=== PATIENT | male | born 1970 | race Caucasian/White ===

== ENCOUNTER → 2020-11-15 10:52 | Outpatient (BNVA) | payer BC, SELFPAY | PROVIDERS: Family Provider Nurse Practitioner; PCP Nurse Practitioner Family; Visit Provider Nurse Practitioner Family | DX: J06.9 Acute upper respiratory infection, unspecified (principal); Z20.822 Contact with and (suspected) exposure to COVID-19 | CPT/HCPCS: 87635 ==

== ENCOUNTER 2020-11-23 22:20 | Emergency (ER) | payer BC, SELFPAY ==
[2020-11-23 22:34] VITALS: BP 149/87; PULSE 128; RESP 17; TEMP 38.4; O2SAT 91; BMI 31.4
--- NOTE | 2020-11-23 22:45 | XRR_ITS ---
PROCEDURE INFORMATION: Exam: XR Chest Exam date and time: 11/23/2020 10:45 PM Age: 50 years old Clinical indication: Cough and shortness of breath; Patient HX: Cough and SOB. Covid + TECHNIQUE: Imaging protocol: XR of the chest. Views: 1 view. COMPARISON: CR Chest 1 [place] [id number] 10/04/2015 5:24 PM FINDINGS: Lungs: Interval appearance of extensive patchy hazy densities in both lungs. No obvious atelectasis in the lower lungs. Interval shallower lung volumes. Pleural spaces: Still no pneumothorax or apparent pleural fluid. Heart/Mediastinum: Still no cardiomegaly. Vasculature: Aortic elongation again evident. Bones/joints: No acute bony disease. XR/XR chest 1V portable [id number] IMPRESSION: Interval extensive bilateral lung disease most suggestive of pneumonia. Other findings detailed above.
[2020-11-24] VITALS (8 sets, daily range): BP systolic 106–131; BP diastolic 71–95; PULSE 88–120; RESP 20–24; TEMP 37.3–37.4; O2SAT 87–94
--- NOTE | 2020-11-24 02:03 | ED_ITS ---
HPI - SOB/Dyspnea General: Chief Complaint: Shortness of Breath/Dyspnea Stated Complaint: Low Oxygen due to Covid Time Seen by Provider: 11/24/20 01:52 Source: patient Mode of arrival: ambulatory Limitations: no limitations History of Present Illness: HPI Narrative: 50-year-old male who states he has been having Covid symptoms of the last 10 days. He stated he is tested positive for Covid 1 week ago. He states over last 2 days has had increasing fever and body aches. He states he had a productive cough and shortness of breath. He states that his pulse ox at home was in the upper 80s. It is 91% here on room air. He denies any improving or worsening factors. He has no history of any respiratory issues. Associated symptoms: Reports fever(s); Deny abdominal pain, chest pain, nausea or vomiting Review of Systems Const: Reports: fever(s), chills and body aches Eyes: Denies: blurry vision or eye discomfort ENMT: Denies: throat pain or dental pain Card: Denies: chest pain Resp: Reports: dyspnea and productive cough GI: Denies: abdominal pain, nausea, vomiting or diarrhea : Denies: dysuria Musc: Denies: neck pain or back pain Skin/Breast: Denies: rash Neuro: Denies: headache(s) Psych: Denies: depression Ju[place]arlos/Lymph: Denies: easy bruising All/Imm: Denies: urticaria PFSH ED PFSH: Family History (Updated 11/15/20 @ 09:24 by Amelia Simpson LPN) Other Diabetes Physical Exam Const: COMMON NORMALS: no acute distress, patient oriented x3 and healthy appearing HENMT: COMMON NORMALS: normocephalic and atraumatic HEAD & SCALP: normocephalic and atraumatic Eye: COMMON NORMALS: Equal, round and reactive pupils present and EOMs intact bilaterally PUPIL: Yes Equal, round and reactive pupils present Neck/C-Spine: COMMON NORMALS: full ROM and supple Chest: COMMONS NORMALS: normal inspection of the chest and normal palpation of entire chest wall Resp: COMMON NORMALS: normal respiratory effort, No retractions, No use of accessory muscles and clear to auscultation bilaterally AUSCULTATION: clear to auscultation bilaterally Cardio: COMMON NORMALS: regular rate, regular rhythm and No murmurs present (Cardio) RATE: regular rate RHYTHM: regular rhythm GI: COMMON NORMALS: Normal to inspection, nondistended, normoactive bowel sounds present, Soft to palpation, non-tender and no masses PALPATION: Yes Soft to palpation Extremity: COMMON NORMALS: normal to inspection and full ROM Neuro: COMMON NORMALS: patient oriented x3, moves all extremities and no focal motor deficits Psych: COMMON NORMALS: mental status grossly normal, Normal thought process present and cooperative THOUGHT PROCESS: Normal thought process present Skin: COMMON NORMALS: no rashes or lesions noted and no wounds GENERAL SKIN EXAM: no rashes or lesions noted Course Vital Signs: Vital signs: Vital Signs Temperature 99.1 F 11/24/20 02:45 Pulse Rate 88 11/24/20 04:41 Respiratory Rate 20 H 11/24/20 04:41 Blood Pressure 106/71 11/24/20 04:41 Pulse Oximetry 93 11/24/20 04:41 MDM - SOB/Dyspnea MDM Narrative: Medical decision making narrative: Patient presents with COVID- 19 pneumonia. He states he feels much improved here after his breathing treatment steroids and oxygen. A long discussion with him and and I offered him admission. He states he feels improved and would like to go home on oxygen. OT eval he qualified for [address] him on 4 L at home. I informed him that if he does worsen at all or get any shortness of breath at all he is to return immediately. He understands agrees this plan Lab Data: Labs: Lab Results 11/24/20 11/24/20 11/24/20 Range/Units 02:20 02:20 02:20 WBC 15.4 H (4.0-10.0) 10^3/ uL RBC 5.29 (4.1-5.3) 10^6/u L Hgb 15.8 (11.7-16.6) g/dL Hct 46.4 (42.0-52.0) % MCV 87.7 (80-94) fL MCH 29.9 (28.0-34.0) pg MCHC 34.1 (30.0-36.0) g/dL RDW 13.2 (12.1-15.1) % Plt Count 289 (130-400) 10^3/c mm MPV 10.7 H (7.4-10.4) fL Lymph % (Auto) Not Reportable [place] % (Auto) Not Reportable Lymph # (Auto) Not Reportable [place] # (Auto) Not Reportable Total Counted 100 (0-100) Atypical Lymphs % 2.0 (0-5) % Absolute Neutrophi ls 11.2 H (1.4-6.5) 10^3/c mm Segmented Neutroph ils 70 % Abs Segm Neuts (Ma n) 10.8 H (1.6-7.1) 10/cmm Band Neutrophils 3.0 % Abs Band Neuts (Ma n) 0.5 (0.0-1.2) 10^3/c mm Absolute Lymphocyt es 2.5 (1.2-3.4) 10^3/c mm Lymphocytes (Manua l) 14 % Monocytes (Manual) 9.0 % Absolute Monocytes 1.4 H (0.1-0.6) 10^3/c mm Eosinophils (Manua l) 0 % Absolute Eosinophi ls 0.0 (0.0-0.7) 10^3/c mm Basophils (Manual) 0.0 % Absolute Basophils 0.0 (0.0-0.2) 10^3/c mm Metamyelocytes 2.0 % Platelet Estimate Normal (Normal) Fibrinogen (174-498) mg/dL D-Dimer (0-0.59) ug/mIFE U Sodium 136 (136-145) mmol/L Potassium 3.8 (3.5-5.1) mmol/L Chloride 103 (98-107) mmol/L Carbon Dioxide 21 L (22-29) mmol/L Anion Gap 15.8 (5-19) BUN 20 (6-20) mg/dL Creatinine 0.6 L (0.7-1.2) mg/dL GFR Calculation 142.0 H (90-130) mL/min Glucose 113 (65-115) mg/dL Calculated Osmolal ity 285 (285-295) mOsm/k g Lactic Acid (0.5-2.2) mmol/L Calcium 7.5 L (8.5-10.5) mg/dL Ferritin 1111 H (30-400) ng/mL Total Bilirubin 0.2 (0.15-1.2) mg/dL AST 28 (0-40) U/L ALT 48 H (0-41) U/L Alkaline Phosphata se 77 (40-130) IU/L Creatine Kinase 53 (39-308) U/L Troponin T Gen 5 n g/L (0-15) ng/L C-Reactive Protein 108.2 H (0.0-4.9) mg/L NT-Pro-B Natriuret Pep 236 H (0-125) pg/mL Total Protein 5.4 L (6.6-8.7) g/dL Albumin 3.1 L (3.5-5.2) g/dL Globulin 2.3 (1.3-4.6) g/dL Procalcitonin 0.22 (0-0.5) ng/mL 11/24/20 11/24/20 11/24/20 Range/Units 02:20 02:20 02:58 WBC (4.0-10.0) 10^3/ uL RBC (4.1-5.3) 10^6/u L Hgb (11.7-16.6) g/dL Hct (42.0-52.0) % MCV (80-94) fL MCH (28.0-34.0) pg MCHC (30.0-36.0) g/dL RDW (12.1-15.1) % Plt Count (130-400) 10^3/c mm MPV (7.4-10.4) fL Lymph % (Auto) [place] % (Auto) Lymph # (Auto) [place] # (Auto) Total Counted (0-100) Atypical Lymphs % (0-5) % Absolute Neutrophi ls (1.4-6.5) 10^3/c mm Segmented Neutroph ils % Abs Segm Neuts (Ma n) (1.6-7.1) 10/cmm Band Neutrophils % Abs Band Neuts (Ma n) (0.0-1.2) 10^3/c mm Absolute Lymphocyt es (1.2-3.4) 10^3/c mm Lymphocytes (Manua l) % Monocytes (Manual) % Absolute Monocytes (0.1-0.6) 10^3/c mm Eosinophils (Manua l) % Absolute Eosinophi ls (0.0-0.7) 10^3/c mm Basophils (Manual) % Absolute Basophils (0.0-0.2) 10^3/c mm Metamyelocytes % Platelet Estimate (Normal) Fibrinogen 727 H (174-498) mg/dL D-Dimer 0.67 H (0-0.59) ug/mIFE U Sodium (136-145) mmol/L Potassium (3.5-5.1) mmol/L Chloride (98-107) mmol/L Carbon Dioxide (22-29) mmol/L Anion Gap (5-19) BUN (6-20) mg/dL Creatinine (0.7-1.2) mg/dL GFR Calculation (90-130) mL/min Glucose (65-115) mg/dL Calculated Osmolal ity (285-295) mOsm/k g Lactic Acid 1.5 (0.5-2.2) mmol/L Calcium (8.5-10.5) mg/dL Ferritin (30-400) ng/mL Total Bilirubin (0.15-1.2) mg/dL AST (0-40) U/L ALT (0-41) U/L Alkaline Phosphata se (40-130) IU/L Creatine Kinase (39-308) U/L Troponin T Gen 5 n g/L 12 (0-15) ng/L C-Reactive Protein (0.0-4.9) mg/L NT-Pro-B Natriuret Pep (0-125) pg/mL Total Protein (6.6-8.7) g/dL Albumin (3.5-5.2) g/dL Globulin (1.3-4.6) g/dL Procalcitonin (0-0.5) ng/mL Imaging Data^: CXR: Attestation: I personally reviewed and interpreted this imaging study as follows: My impression: Bilateral infiltrates consistent with COVID-19 Discharge Plan Discharge Patient Disposition: Home Clinical Impression: COVID-19 Condition: Stable Prescriptions: No Action azithromycin [Zithromax Z-Robbie] 250 mg tablet See Rx Instructions PO .COMPLEX Qty: 6 RF: 0 dexamethasone 6 mg tablet 6 mg PO DAILY Qty: 7 RF: 0 Discharge Orders: Discharge ED (Routine); Ordered 11/24/20 Ordered By: Holli Yoo Other Ambulatory Orders: DME: Oxygen (Order) Location: None Selected Ordered By: Holli Yoo DME: Oxygen (Order) Location: None Selected Ordered By: Holli Yoo Discharge Diet: Advance as tolerated Discharge Activity: Resume usual activity Patient Instructions: Viral Syndrome (ED) Coding Level of Care Code ED Cotton Ball Machine Tender for Km Fwmaximilian Exam Comprehensive
[2020-11-24] MEDS: acetaminophen 500 mg Tablet 1000 MG PO (02:07)
[2020-11-24] MEDS: dexamethasone 4 mg/mL INJ 10 MG IVP (02:10)
[2020-11-24] MEDS: sodium chloride 0.9% 1,000 ML 999 ML IV (02:10)
[2020-11-24] MEDS: albuterol 8 gm MDI 2 PUFF INHALATION (02:36)
[2020-11-24 02:38] LABS: Hematocrit 46.4 % (42.0-52.0); Hemoglobin 15.8 g/dL (11.7-16.6); Mean Corpuscular HGB Conc 34.1 g/dL (30.0-36.0); Mean Corpuscular Hemoglobin 29.9 pg (28.0-34.0); Mean Corpuscular Volume 87.7 fL (80-94); Mean Platelet Volume 10.7 fL (7.4-10.4); Platelet Count 289 10^3/cmm (130-400); Red Blood Count 5.29 10^6/uL (4.1-5.3); Red Cell Distribution Width 13.2 % (12.1-15.1); White Blood Count 15.4 10^3/uL (4.0-10.0)
[2020-11-24 03:06] LABS: Troponin T (5th) Once 12 ng/L (0-15)
[2020-11-24 03:11] LABS: Lactic Sepsis W/Reflex 1.5 mmol/L (0.5-2.2)
[2020-11-24 03:12] LABS: Alanine Aminotransferase 48 U/L (0-41); Albumin Level 3.1 g/dL (3.5-5.2); Alkaline Phosphatase 77 IU/L (40-130); Anion Gap 15.8 (5-19); Aspartate Amino Transferase 28 U/L (0-40); Blood Urea Nitrogen 20 mg/dL (6-20); C Reactive Protein 108.2 mg/L (0.0-4.9); Calcium 7.5 mg/dL (8.5-10.5); Carbon Dioxide 21 mmol/L (22-29); Chloride 103 mmol/L (98-107); Creatine Phosphokinase 53 U/L (39-308); Globulin 2.3 g/dL (1.3-4.6); Glucose 113 mg/dL (65-115); Osmolality Calculated 285 mOsm/kg (285-295); Potassium 3.8 mmol/L (3.5-5.1); Sodium 136 mmol/L (136-145); Total Bilirubin 0.2 mg/dL (0.15-1.2); Total Protein 5.4 g/dL (6.6-8.7)
[2020-11-24 03:21] LABS: NT Pro B Type Natriuretic Pept 236 pg/mL (0-125); Procalcitonin 0.22 ng/mL (0-0.5)
[2020-11-24 03:25] LABS: Fibrinogen 727 mg/dL (174-498)
[2020-11-24 03:26] LABS: Ferritin 1111 ng/mL (30-400)
[2020-11-24 03:30] LABS: D Dimer 0.67 ug/mIFEU (0-0.59)
[2020-11-24 03:32] LABS: Absolute Neutrophil 11.2 10^3/cmm (1.4-6.5); Absolute Segmented Neutrophil 10.8 10/cmm (1.6-7.1); Band Neutrophils Absolute 0.5 10^3/cmm (0.0-1.2); Eosinophils 0 %; Lymphocytes 14 %; Lymphocytes Absolute 2.5 10^3/cmm (1.2-3.4); Monocytes Absolute 1.4 10^3/cmm (0.1-0.6); Platelet Estimate Normal (Normal); Segmented Neutrophils 70 %; Slide Review Slide Review Perform; Total Cells Counted 100 (0-100)
== END 2020-11-24 05:45 | disposition home or self-care (01) ==
PROVIDERS: Nurse Practitioner Family; Emergency Provider Emergency Medicine
DX: U07.1 COVID-19 (principal)
CPT/HCPCS: 71045; 80053; 82550; 82728; 83605; 83880; 84145; 84484; 85007; 85025; 85378; 85384; 86140; 94640; 96361; 96374; 99284; J1100; J3535; J7030

== ENCOUNTER 2020-11-25 11:24 | Inpatient (IN) | payer BC, SELFPAY ==
[2020-11-25] VITALS (56 sets, daily range): BP systolic 104–145; BP diastolic 67–93; PULSE 45–113; RESP 18–32; TEMP 36.4–37.5; O2SAT 81–100; BMI 31.4; BMI 30.6
--- NOTE | 2020-11-25 11:39 | XR_ITS ---
WS: [id number] Portable AP upright chest, 11/25/2020 Clinical Data: dyspnea Comparison: Portable chest, 11/24/2020 Findings: The bilateral pulmonary opacities have not changed. The heart size is at the upper limits o f normal. No pneumothorax is seen. There are monitor leads on the chest wall. XR/XR chest 1V portable [id number] Impression: No change in bilateral pulmonary opacities.
--- NOTE | 2020-11-25 11:42 | CT_ITS ---
WS: [id number] CT CHEST ANGIOGRAPHY WITH REFORMATS HISTORY: covid TECHNIQUE: Contiguous axial images are obtained through the chest during arterial injection of intrav enous contrast. Images are reconstructed to evaluate the pulmonary arteries. MIP imaging also reviewe d. All CT scans at [facility] use at least one of these dose optimization techniques: aut omated exposure control; mA and/or kV adjustment per patient size (includes targeted exams where dose is matched to clinical indication); or iterative reconstruction. CONTRAST: Omnipaque 350; 95 mL IV. DLP: 995.48 mGy.cm COMPARISON: None available. Good opacification of the pulmonary arteries. No pulmonary embolism centrally. Segmental and subsegme ntal branches of the pulmonary arteries are poorly visualized due to extensive airspace disease bilat erally. No RIGHT heart strain. Normal size aorta. Pulmonary artery is actually slightly enlarged. Mil d enlargement of the LEFT heart. There is extensive groundglass attenuation and consolidations noted bilaterally throughout all lobes. Consistent with a history of Covid 19. Reactive lymphadenopathy with the largest lymph node at the R IGHT hilum measuring 17 mm. Upper abdomen is negative. CT/CT angio chest PE protcl [id number] IMPRESSION: 1. No central pulmonary embolism. 2. Extensive multilobar consolidations with a few groundglass areas from pneum onitis. Consistent with Covid 19 diagnosis. 3. Reactive mediastinal adenopathy. 4. Mild pulmonary hypertension.
[2020-11-25 12:05] LABS: ABG PH Result 7.48 (7.35-7.45); Alveolar-Arterial Oxygen Gradi 79.2 mmHg (5-10); Arterial Blood Gas Hematocrit 48.4 % (42-52); Base Excess ABG 0.3 mmol/L (-2.0-2.0); Blood Gas Allen Test Pos; Blood Gas Sample Site Radial, right; Blood Gas Sample Type Arterial; Carboxyhemoglobin 0.6 %THgb (0.4-20.1); HCO3 ABG 22.9 mmol/L (22-26); HGB O2 Sat 92.5 % (95-100); Ionized Calcium Level - ABG 1.1 mmol/L (1.1-1.4); Methemoglobin 0.9 % (0.4-1.5); Oxygen Device NC; Oxygen Saturation ABG 93.9; PO2 ABG 62.9 mmHg (80.0-100.0); Potassium Level - ABG 3.7 mmol/L (3.5-5.0); Total Hemoglobin 15.8 g/dL (14-18)
[2020-11-25 12:05] LABS: Basophils # 0.1 10^3/uL (0.0-0.1); Basophils % 0.3 %; Eosinophils % 0.1 %; Hematocrit 46.2 % (42.0-52.0); Hemoglobin 15.2 g/dL (11.7-16.6); Lymphocytes # 1.1 10^3/uL (0.8-4.8); Lymphocytes % 4.7 %; Mean Corpuscular HGB Conc 32.9 g/dL (30.0-36.0); Mean Corpuscular Hemoglobin 29.7 pg (28.0-34.0); Mean Corpuscular Volume 90.2 fL (80-94); Mean Platelet Volume 11.1 fL (7.4-10.4); Monocytes # 1.8 10^3/uL (0.2-0.9); Neutrophils % 84.2 %; Nucleated Red Blood Cells % 0 %; Platelet Count 281 10^3/cmm (130-400); Red Blood Count 5.12 10^6/uL (4.1-5.3); Red Cell Distribution Width 13.5 % (12.1-15.1); White Blood Count 22.9 10^3/uL (4.0-10.0)
[2020-11-25] MEDS: iohexol 350 mg/mL 100 mL Btl IV (12:38)
--- NOTE | 2020-11-25 12:39 | ED_ITS ---
HPI - COVID General: Chief Complaint: COVID symptoms Stated Complaint: COVID +/ DIFFICULTY BREATHING Time Seen by Provider: 11/25/20 11:26 Triage information: Has fever, cough or shortness of breath . Exposure to COVID + person last 14 days History of Present Illness: HPI Narrative: 50-year-old male presents emergency room complaining of severe shortness of breath he is profoundly hypoxic keeping in the upper 90s at 15 L/min by a nonrebreather. He tested positive for Covid on November 15. He had symptoms starting the day prior he had been on home O2 at 4 L by nasal cannula been progressively worsening to the point where he has coughing fits desaturated and could not breathe this morning called EMS. MD complaint: known COVID positive Prior covid testing: yes, results known Prior testing date: 11/15/20 COVID 19 common symptoms: positive fever(s), chills, cough, non-productive cou gh, dyspnea, fatigue, body aches, headache(s), nasal congestion and nausea COVID 19 other sytmptoms: positive requiring oxygen; negative chest pain Onset (ago): day(s) Severity: severe Treatment prior to arrival: none COVID Results: SARS-CoV-2 RNA (RT-PCR) Detected (NOT DETECTED) A 11/15/20 10:52 11/15/20 Review of Systems Const: Reports: fever(s), chills, body aches and fatigue ENMT: Reports: nasal congestion Card: Denies: chest pain, edema, dyspnea on exertion or orthopnea Resp: Reports: dyspnea and non-productive cough GI: Reports: nausea : Denies: flank pain, dysuria, urinary frequency or urinary urgency Skin/Breast: Denies: rash or pruritus Neuro: Reports: headache(s) PFS ED PFSH: Family History Other Diabetes Social History (Updated 11/25/20 @ 17:06 by Mikael Brooks MD) Smoking and tobacco status: former smoker Alcohol intake: never Household members: spouse Housing: House Physical Exam Const: COMMON NORMALS: no acute distress GENERAL APPEARANCE: cooperative and comfortable ORIENTATION/CONSCIOUSNESS: Yes awake, Yes oriented to person, Yes oriented to place and Yes oriented to time HENMT: COMMON NORMALS: normocephalic, atraumatic and hearing grossly normal bilaterally HEAD & SCALP: normocephalic and atraumatic Resp: AUSCULTATION: rhonchi and wheezes Cardio: RATE: tachycardic GI: COMMON NORMALS: Soft to palpation and No hepatosplenomegaly present AUSCULTATION: Yes normoactive bowel sounds PALPATION: Yes Soft to palpation, No Tenderness to palpation present (GI), No Guarding due to palpation present (GI) and Yes No hepatosplenomegaly present Extremity: COMMON NORMALS: normal to inspection, capillary refill normal, no clubbing, cyanosis or edema, no calf tenderness and no pedal edema Neuro: SENSORIUM/ORIENTATION: Yes oriented to person, Yes oriented to place and Yes oriented to time Skin: COMMON NORMALS: no rashes or lesions noted GENERAL SKIN EXAM: no rashes or lesions noted Course Vital Signs: Vital signs: Vital Signs Temperature 98.2 F 11/29/20 04:00 Pulse Rate 73 11/29/20 04:12 Respiratory Rate 17 11/29/20 04:00 Blood Pressure 160/84 11/29/20 04:00 Pulse Oximetry 93 11/29/20 04:00 MDM - COVID MDM Narrative: Medical decision making narrative: COVID-19 pneumonitis with worsening symptoms were going to have to go ahead and admit him he is having significant oxygen requirement. Discussed with hospitalist has started the patient on dexamethasone and remdesivir. Lab Data: Labs: Lab Results 11/25/20 11/25/20 11/25/20 Range/Units 11:45 11:45 11:45 WBC 22.9 H (4.0-10.0) 10^3/ uL RBC 5.12 (4.1-5.3) 10^6/u L Hgb 15.2 (11.7-16.6) g/dL Hct 46.2 (42.0-52.0) % MCV 90.2 (80-94) fL MCH 29.7 (28.0-34.0) pg MCHC 32.9 (30.0-36.0) g/dL RDW 13.5 (12.1-15.1) % Plt Count 281 (130-400) 10^3/c mm MPV 11.1 H (7.4-10.4) fL Neut % (Auto) 84.2 % Lymph % (Auto) 4.7 % [place] % (Auto) 8.0 % Eos % (Auto) 0.1 % Baso % (Auto) 0.3 % Neut # (Auto) 19.30 H (1.8-7.7) 10^3/u L Lymph # (Auto) 1.1 (0.8-4.8) 10^3/u L [place] # (Auto) 1.8 H (0.2-0.9) 10^3/u L Eos # (Auto) 0.0 (0.0-0.8) 10^3/u L Baso # (Auto) 0.1 (0.0-0.1) 10^3/u L Nucleated RBC % (a uto) 0 % Nucleated RBCs # 0.0 /100WBC Specimen Type Sample Site ABG pH (7.35-7.45) ABG pCO2 (35-45) mmHg ABG pO2 (80.0-100.0) mmH g ABG HCO3 (22-26) mmol/L ABG O2 Saturation ABG Base Excess (-2.0-2.0) mmol/ L Favian Test A-a O2 Gradient (5-10) mmHg Hematocrit (42-52) % Hgb O2 Saturation (95-100) % Carboxyhemoglobin (0.4-20.1) %THgb Methemoglobin (0.4-1.5) % Total Hemoglobin (14-18) g/dL Ionized Calcium (1.1-1.4) mmol/L O2 Delivery Device FiO2 % Canning Machine Operator ID Sodium Cancelled Potassium Cancelled Chloride Cancelled Carbon Dioxide Cancelled Anion Gap Cancelled BUN Cancelled Creatinine Cancelled GFR Calculation Cancelled Glucose Cancelled Calculated Osmolal ity Cancelled Lactic Acid Cancelled Calcium Cancelled Total Bilirubin Cancelled AST Cancelled ALT Cancelled Alkaline Phosphata se Cancelled C-Reactive Protein Cancelled Total Protein Cancelled Albumin Cancelled Globulin Cancelled 11/25/20 11/25/20 11/25/20 Range/Units 11:50 12:21 12:21 WBC (4.0-10.0) 10^3/ uL RBC (4.1-5.3) 10^6/u L Hgb (11.7-16.6) g/dL Hct (42.0-52.0) % MCV (80-94) fL MCH (28.0-34.0) pg MCHC (30.0-36.0) g/dL RDW (12.1-15.1) % Plt Count (130-400) 10^3/c mm MPV (7.4-10.4) fL Neut % (Auto) % Lymph % (Auto) % [place] % (Auto) % Eos % (Auto) % Baso % (Auto) % Neut # (Auto) (1.8-7.7) 10^3/u L Lymph # (Auto) (0.8-4.8) 10^3/u L [place] # (Auto) (0.2-0.9) 10^3/u L Eos # (Auto) (0.0-0.8) 10^3/u L Baso # (Auto) (0.0-0.1) 10^3/u L Nucleated RBC % (a uto) % Nucleated RBCs # /100WBC Specimen Type Arterial Sample Site Radial, right ABG pH 7.48 H (7.35-7.45) ABG pCO2 31.0 L (35-45) mmHg ABG pO2 62.9 L (80.0-100.0) mmH g ABG HCO3 22.9 (22-26) mmol/L ABG O2 Saturation 93.9 ABG Base Excess 0.3 (-2.0-2.0) mmol/ L Favian Test Pos A-a O2 Gradient 79.2 H (5-10) mmHg Hematocrit 48.4 (42-52) % Hgb O2 Saturation 92.5 L (95-100) % Carboxyhemoglobin 0.6 (0.4-20.1) %THgb Methemoglobin 0.9 (0.4-1.5) % Total Hemoglobin 15.8 (14-18) g/dL Ionized Calcium 1.1 (1.1-1.4) mmol/L O2 Delivery Device Nc FiO2 100.0 % Canning Machine Operator ID [id number] Sodium 135.0 132 L Potassium 3.7 4.1 Chloride 99 Carbon Dioxide 22 Anion Gap 15.1 BUN 16 Creatinine 0.6 L GFR Calculation 142.0 H Glucose 112.0 104 Calculated Osmolal ity 275 L Lactic Acid 2.4 H Calcium 7.7 L Total Bilirubin 0.3 AST 18 ALT 32 Alkaline Phosphata se 70 C-Reactive Protein 120.0 H Total Protein 5.5 L Albumin 3.2 L Globulin 2.3 COVID Results: SARS-CoV-2 RNA (RT-PCR) Detected (NOT DETECTED) A 11/15/20 10:52 11/15/20 Discharge Plan Discharge Patient Disposition: Admitted As Inpatient Admit Provider: Mikael Brooks Clinical Impression: COVID-19, ARDS (adult respiratory distress syndrome) Condition: Stable Coding Level of Care Code ED Facility Assistant for Chg Fwd Exam Detailed
[2020-11-25 12:49] LABS: Chloride 99 mmol/L (98-107); Potassium 4.1 mmol/L (3.5-5.1)
[2020-11-25 12:54] LABS: Lactic Sepsis W/Reflex 2.4 mmol/L (0.5-2.2)
[2020-11-25 13:36] LABS: Alanine Aminotransferase 32 U/L (0-41); Albumin Level 3.2 g/dL (3.5-5.2); Alkaline Phosphatase 70 IU/L (40-130); Aspartate Amino Transferase 18 U/L (0-40); Blood Urea Nitrogen 16 mg/dL (6-20); Calcium 7.7 mg/dL (8.5-10.5); Carbon Dioxide 22 mmol/L (22-29); Globulin 2.3 g/dL (1.3-4.6); Glucose 104 mg/dL (65-115); Total Bilirubin 0.3 mg/dL (0.15-1.2); Total Protein 5.5 g/dL (6.6-8.7)
[2020-11-25 13:39] LABS: Anion Gap 15.1 (5-19); Osmolality Calculated 275 mOsm/kg (285-295); Sodium 132 mmol/L (136-145)
[2020-11-25 14:11] LABS: Reflex Lactate Order REFLEX LACTIC ORDERD
[2020-11-25] MEDS: remdesivir 200 MG in sodium chloride 0.9% (100 ml) 100 ML 100 MG IV (15:21)
--- NOTE | 2020-11-25 16:08 | PM.HP ---
Providers/Chief Complaint Chief Complaint: COVID +/ DIFFICULTY BREATHING History of Present Illness Pankaj Bernardo is a 50 year old male with no pertinent past medical history who was tested positive for Covid last . Patient has been on home treatment with home oxygen, oral dexamethasone. Overnight patient started having increased shortness of breath got nervous so called EMS. On arrival of EMS he was found to have severe hypoxia. On arrival to the ER he was at 90% on 15 L nonrebreather. In the ER patient has received full dose of remdesivir. Hospitalist service has been consulted for admission and further management. He tells me he is not vaccinated for COVID-19. His family otherwise is vaccinated. Blood work in the ER showed a white count 22,000, hemoglobin of 15.2, platelet count 281, sodium of 142, creatinine of 0.6, lactic of 2.4, CRP of 120. CTA was done and resulted as below. Review of Systems General: Reports: 10 or more systems reviewed and unremarkable except in HPI and below Const: Denies: fever(s), chills, body aches, change in appetite, change in weight, malaise, night sweats, diaphoresis, change in sleep pattern, daytime sleepiness or snoring Eyes: Denies: change in vision, blurry vision, photophobia, eye discomfort or eye discharge ENMT: Denies: throat pain, enlarged tonsils, hoarseness, mouth pain, oral sores, dry mouth, tinnitus, nasal congestion or post nasal drip Card: Denies: chest pain, palpitations, irregular heart rhythm, edema, swelling of feet/ankles, lightheadedness, syncope, pre-syncope, dyspnea on exertion, orthopnea, leg pain with exertion or acrocyanosis Resp: Denies: dyspnea, productive cough, non-productive cough, wheezing, stridor, pain on inspiration, change in phlegm color, hemoptysis or chest congestion GI: Denies: abdominal pain, nausea, vomiting, hematemesis, coffee ground emesis, dysphagia, heartburn, diarrhea, constipation, bloating, GI cramping, change in bowel habits, pain on defecation, hematochezia or melena : Denies: flank pain, difficulty urinating, dysuria, urinary frequency, urinary urgency, urinary hesitancy, urinary dribbling, difficulty starting urination, change in urine stream, nocturia or hematuria Musc: Denies: neck pain, back pain, extremity pain, joint pain, joint swelling, joint redness, joint stiffness or limited range of motion Neuro: Denies: headache(s), numbness in extremities, weakness in extremities, sensory changes, lack of coordination, difficulty walking, frequent falls, dizziness, vertigo, confusion, Slurred speech present, difficulty communicating thoughts or seizure-like activity Psych: Denies: anxiety, depression, mood swings, panic attacks, hopelessness or irritability Endo: Denies: polyuria, polydipsia, tired all the time, cold intolerance, excessive sweating, flushing or heat intolerance Juancarlos/Lymph: Denies: easy bruising or easy bleeding All/Imm: Denies: tongue swelling, facial swelling or acute wheezing Medications/Allergies Home Medications Medication Instructions Recorded Confirmed Last Taken Type No Known Home Medications 11/25/20 11/25/20 Unknown History Allergies Allergy/AdvReac Type Severity Reaction Status Date / Time Penicillins Allergy unsure Verified 11/15/20 09:24 PFSH Acute PFSH: Family History Other Diabetes Social History (Updated 11/25/20 @ 17:06 by Mikael Brooks MD) Smoking and tobacco status: former smoker Alcohol intake: never Household members: spouse Housing: House Vitals/I&O/Wt Last Vital Signs Temp 99.5 F 11/25/20 11:50 Pulse 70 11/25/20 15:38 Resp 20 H 11/25/20 15:38 BP 118/77 11/25/20 14:18 Pulse Ox 98 11/25/20 15:38 Weight last 48 hrs Weight 96.615 kg Physical Exam Narrative: EXAM NARRATIVE: General: In acute or surgical shortness of breath, sick appearing, tired appearing, on heated high flow saturating 90%. HEENT: PERRLA, pupils bilaterally equal and reactive Chest: Bilateral bronchial breath sounds, diffuse rhonchi all over the lung loco, equal good air entry bilaterally CVS: S1-S2 regular, no murmurs, no tachycardia, no gallops, no rubs Abdomen: Soft, nontender, no organomegaly, bowel sounds present Neuro: No focal deficits, no facial deformity, AO x3, power 5/5 in all limbs Data : 11/26/20 05:29 11/26/20 05:29 A&P Assessment and plan (1) ARDS (adult respiratory distress syndrome): Status: Acute (2) COVID-19: Status: Acute Additional A&P Information ARDS secondary to COVID-19 pneumonia: ABG shows PO2 of 62 on FiO2 of 100%. Remdesivir to finish 5-day course. Dexamethasone 10 mg IV stat followed by 6 mg daily. DuoNebs every 4 hour, budesonide twice daily. Tessalon Perles. Every 8 hourly, Robitussin Pulmonary toilet with incentive spirometry and flutter valve. Vitamin C, zinc. CTA negative for PE. As patient is severely sick Fornoff start patient on full dose anticoagulation with 1 mg/kg body weight every 12 hourly Lovenox. Given elevated white count, fever, 10 days into COVID-19 pneumonia cannot rule out bacterial superimposed infection. Check procalcitonin, MRSA swab, blood culture, sputum culture, urine Legionella, bacterial antigen. Start patient on vancomycin, cefepime as per creatinine clearance. Will de-escalate antibiotics as per culture results. Check echocardiogram. Plan to keep him net negative. IV Lasix 40 mg stat. Daily weights, strict input output charting. Fluid restriction up to 1500 cc[address] If needed can place. Patient on BiPAP with Precedex drip. Early intubation. If patient procalcitonin negative as patient is severely ill will give a dose of Actemra as inflammatory markers are elevated. Continue to monitor inflammatory markers daily including LDH, ferritin, ESR, CRP. Severely guarded prognosis. Admit to ICU. Full code. Full dose Lovenox will help with DVT prophylaxis as well. GI soft diet. Famotidine for daily prophylaxis. Attestations Medical Necessity Statement*: Admit to ICU for more than 2 midnights for ARDS secondary to COVID-19 pneumonia with possible superimposed bacterial infection Critical Care Time: The high probability of a clinically significant, sudden or life threatening deterioration of the patient's [respiratory] system(s) required my full and direct attention, intervention and personal management. The critical care time is as shown. 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
[2020-11-25 16:17] LABS: Add Urine Microscopic? NO; Charge for UA Resulting for Rev
[2020-11-25 16:37] LABS: Bilirubin Urine Neg (Negative); Blood Urine Neg (Negative); Glucose Urine UA Norm (Normal); Ketones Urine Negative (Negative); Leukocyte Esterase Urine Negative (Negative); Nitrate Urine Negative (Negative); Protein Urine Neg (Negative); Specific Gravity, Urine 1.015 (1.005-1.030); Urine Appearance Clear (CLEAR); Urine Color Yellow (Yellow); Urobilinogen Urine Norm (Negative); pH Urine 5 (5-7)
[2020-11-25 16:40] LABS: Potassium, Radom Urine 19 mmol/L; Urine Random Chloride 111 mmol/L; Urine Random Sodium 113 mmol/L
[2020-11-25] MEDS: dexamethasone 10 mg/mL INJ IVP (17:03)
[2020-11-25] MEDS: FUROsemide 10 mg/mL SDV 4mL 40 MG IVP (17:04)
[2020-11-25 17:11] LABS: Lactic Acid level (Lactate) 1.7 mmol/L (0.5-2.2)
[2020-11-25] MEDS: cefepime 1,000 MG in sodium chloride 0.9% (plus) 100 ML 200 MG IV (17:34)
[2020-11-25 17:35] LABS: NT Pro B Type Natriuretic Pept 131 pg/mL (0-125); Procalcitonin 0.23 ng/mL (0-0.5); Thyroid Stimulating Hormone 0.77 uIU/mL (0.27-4.20)
[2020-11-25 17:46] LABS: Iron 20 ug/dL (59-158); Percent Saturation 9.3 % (20-50); Total Iron Binding Capacity 215 mcg/dl; Unsaturated Iron Binding 195 ug/dL (112-347)
[2020-11-25] MEDS: vancomycin 1,250 MG/250 ML PIGGYBACK 200 MG IV (17:54)
[2020-11-25 18:20] LABS: ABG PCO2 35.6 mmHg (35-45); ABG PH Result 7.48 (7.35-7.45); Alveolar-Arterial Oxygen Gradi 51.4 mmHg (5-10); Arterial Blood Gas Hematocrit 48.3 % (42-52); Base Excess ABG 3.3 mmol/L (-2.0-2.0); Blood Gas Allen Test Pos; Blood Gas Sample Site Radial, left; Blood Gas Sample Type Arterial; Carboxyhemoglobin 0.5 %THgb (0.4-20.1); HCO3 ABG 26.6 mmol/L (22-26); HGB O2 Sat 91.3 % (95-100); Ionized Calcium Level - ABG 1.1 mmol/L (1.1-1.4); Methemoglobin 0.9 % (0.4-1.5); Oxygen Saturation ABG 92.6; PO2 ABG 57.9 mmHg (80.0-100.0); Potassium Level - ABG 4.1 mmol/L (3.5-5.0); Total Hemoglobin 15.8 g/dL (14-18)
[2020-11-25] MEDS: ipratropium-albuterol 3 mL Neb INHALATION ×2 (19:37→23:54)
[2020-11-25] MEDS: budesonide 0.5 mg/2 mL Neb INHALATION (19:37)
[2020-11-25] MEDS: ascorbic acid 500 mg Tablet 1000 MG PO (20:45)
[2020-11-25] MEDS: ferrous gluconate 324 mg Tablet PO (20:46)
[2020-11-25] MEDS: enoxaparin 100 mg/mL Syringe 94 MG SUBCUT (20:46)
[2020-11-25] MEDS: benzonatate 100 mg Capsule PO (20:46)
[2020-11-25] MEDS: famotidine 20 mg/2 mL INJ IVP (20:46)
[2020-11-26] VITALS (234 sets, daily range): BP systolic 102–151; BP diastolic 63–95; PULSE 41–113; RESP 16–22; TEMP 36.4–37; O2SAT 85–99
[2020-11-26 00:06] LABS: Glucose Point of Care 132 mg/dL (70-110)
[2020-11-26] MEDS: vancomycin 1,250 MG/250 ML PIGGYBACK 200 MG IV ×3 (02:41→19:10)
[2020-11-26] MEDS: ipratropium-albuterol 3 mL Neb INHALATION ×5 (03:07→21:00)
[2020-11-26 05:57] LABS: Basophils % 0.2 %; Hematocrit 44.4 % (42.0-52.0); Hemoglobin 14.6 g/dL (11.7-16.6); Lymphocytes # 0.9 10^3/uL (0.8-4.8); Lymphocytes % 5.2 %; Mean Corpuscular HGB Conc 32.9 g/dL (30.0-36.0); Mean Corpuscular Hemoglobin 29.9 pg (28.0-34.0); Mean Corpuscular Volume 90.8 fL (80-94); Mean Platelet Volume 10.4 fL (7.4-10.4); Monocytes # 1.1 10^3/uL (0.2-0.9); Monocytes % 6.7 %; Neutrophils # 14.27 10^3/uL (1.8-7.7); Neutrophils % 86.4 %; Nucleated Red Blood Cells % 0 %; Platelet Count 306 10^3/cmm (130-400); Red Blood Count 4.89 10^6/uL (4.1-5.3); Red Cell Distribution Width 13.6 % (12.1-15.1); White Blood Count 16.5 10^3/uL (4.0-10.0)
--- NOTE | 2020-11-26 06:00 | XRR_ITS ---
PROCEDURE INFORMATION: Exam: XR Chest Exam date and time: 11/26/2020 6:00 AM Age: 50 years old Clinical indication: Patient HX: F/u covid pneumonia TECHNIQUE: Imaging protocol: XR of the chest. Views: 1 view. COMPARISON: CR XR chest 1V portable [id number] 11/25/2020 12:01 PM FINDINGS: Lungs: Bilateral pulmonary infiltrates are unchanged. Pleural spaces: Unremarkable. No pleural effusion. No pneumothorax. Heart/Mediastinum: Unremarkable. No cardiomegaly. Bones/joints: Unremarkable. XR/XR chest 1V portable [id number] IMPRESSION: Stable bilateral pulmonary infiltrates.
[2020-11-26] MEDS: cefepime 1,000 MG in sodium chloride 0.9% (plus) 100 ML 200 MG IV (06:03)
[2020-11-26 06:09] LABS: D Dimer 0.55 ug/mIFEU (0-0.59)
[2020-11-26 06:17] LABS: Estmated Average Glucose 140; Hemoglobin A1C 6.5 % (4.0-6.0)
[2020-11-26 06:22] LABS: Alanine Aminotransferase 29 U/L (0-41); Alkaline Phosphatase 68 IU/L (40-130); Anion Gap 18.2 (5-19); Aspartate Amino Transferase 15 U/L (0-40); Blood Urea Nitrogen 25 mg/dL (6-20); Calcium 8.3 mg/dL (8.5-10.5); Carbon Dioxide 25 mmol/L (22-29); Chloride 96 mmol/L (98-107); Chol HDL Ratio 4.21 mg/dL (1.0-5.00); Cholesterol 177 mg/dL (0-200); Creatine Phosphokinase 52 U/L (39-308); Globulin 3.5 g/dL (1.3-4.6); Glomerular Filtration Rate 101.9 mL/min (90-130); Glucose 179 mg/dL (65-115); HDL Cholesterol 42 mg/dL (60-100); LDL Cholesterol Calculated 118 mg/dL (50-129); Magnesium 2.4 mg/dL (1.7-2.3); Osmolality Calculated 289 mOsm/kg (285-295); Phosphorus 4.6 mg/dL (2.5-4.5); Potassium 4.2 mmol/L (3.5-5.1); Sodium 135 mmol/L (136-145); Total Bilirubin 0.3 mg/dL (0.15-1.2); Total Protein 6.5 g/dL (6.6-8.7); Triglycerides 87 mg/dL (0-150); VLDL Cholestrol Calculation 17 mg/dL (0-30)
--- NOTE | 2020-11-26 06:26 | PC.NURSE ---
Shift Summary Patient had an uneventful night, he had no complaints of pain. Patient has been on BIPAP all evening, FiO2 is currently at 50%. Bueno catheter drained 1650 mls of clear bright yellow urine all evening. Left hand and right AC IV sites are saline locked at this time. No skin issues or wounds are noted at this time. Patient is on a 24 hr, 1500 ml fluid restriction at this time. He has had 200 mls intake overnight.
[2020-11-26 07:13] LABS: Ferritin 1681 ng/mL (30-400)
[2020-11-26 07:22] LABS: Erythrocyte Sedimentation Rate 60 mm/hr (0-10)
[2020-11-26] MEDS: zinc gluconate 50 mg Tablet PO (08:06)
[2020-11-26] MEDS: ferrous gluconate 324 mg Tablet PO ×2 (08:06→17:22)
[2020-11-26] MEDS: benzonatate 100 mg Capsule PO ×3 (08:06→20:06)
[2020-11-26] MEDS: famotidine 20 mg/2 mL INJ IVP ×2 (08:06→20:06)
[2020-11-26] MEDS: budesonide 0.5 mg/2 mL Neb INHALATION ×2 (08:09→21:00)
[2020-11-26] MEDS: dexamethasone 4 mg/mL INJ 6 MG IVP (08:09)
[2020-11-26] MEDS: enoxaparin 100 mg/mL Syringe 94 MG SUBCUT ×2 (08:10→20:06)
[2020-11-26 09:17] LABS: Glucose Point of Care 165 mg/dL (70-110)
--- NOTE | 2020-11-26 10:08 | P.PN_ITS ---
Subjective Subjective: Interval history: On examination today on 80% 40 L high flow saturating 97%. Looking and feeling a lot better than yesterday. No more cough. Appetite appropriate. Does not have incentive spirometry and flutter valve yet. Agreeable to using the same. Sitting up in chair on examination. Vitals/I&O/Wt Last Vital Signs Temp 98.3 F 11/26/20 09:00 Pulse 62 11/26/20 09:55 Resp 22 H 11/26/20 09:00 BP 123/84 11/26/20 10:00 Pulse Ox 98 11/26/20 10:00 11/25/20 11/26/20 11/26/20 22:59 06:59 14:59 Intake Total 550 / 550 550 / 1100 Output Total 1800 / 1800 1650 / 3450 Balance -1250 / -1250 -1100 / -2350 Weight last 48 hrs Weight 93.984 kg Weight 96.615 kg Physical Exam Narrative: EXAM NARRATIVE: General: Sick appearing, less tired, AO x3, no acute distress at present HEENT: PERRLA, pupils bilaterally equal and reactive Chest: Bilateral bronchial breath sounds, diffuse rhonchi all over the lung loco, equal good air entry bilaterally CVS: S1-S2 regular, no murmurs, no tachycardia, no gallops, no rubs Abdomen: Soft, nontender, no organomegaly, bowel sounds present Neuro: No focal deficits, no facial deformity, AO x3, power 5/5 in all limbs Urinary Catheter Management^: Bueno: Cath Placed During This Visit: yes Reason for Continuing Indwelling Catheter: Accurate Measurement of Urinary Output in Critically Ill Patients Urinary Catheter Date of Insertion: 11/25/20 Urinary Catheter Time of Insertion: 20:05 Data : 11/26/20 05:29 11/26/20 05:29 Micro: Microbiology 11/25/20 16:06 MRSA Culture - Final Nose 11/25/20 16:06 Legionella Urinary Antigen - Final Urine,Voided 11/25/20 16:06 Bacterial Antigens - Final Urine Kidney 11/25/20 16:28 Blood Culture - Preliminary Blood SPECIMEN COLLECTED 11/25/20 16:25 Blood Culture - Preliminary Blood SPECIMEN COLLECTED A&P Assessment and plan (1) ARDS (adult respiratory distress syndrome): Status: Acute (2) COVID-19: Status: Acute Additional A&P Information ARDS secondary to COVID-19 pneumonia: Repeat ABG. Post 1 dose of Actemra on October 26. Remdesivir to finish 5-day course. Dexamethasone 10 mg IV stat followed by 6 mg daily. DuoNebs every 4 hour, budesonide twice daily. Tessalon Perles. Every 8 hourly, Robitussin Pulmonary toilet with incentive spirometry and flutter valve. Vitamin C, zinc. CTA negative for PE. For now continue with Lovenox 1 mg/kg body weight every 12 hourly. Most likely patient will need anticoagulation 14 days post discharge. Given elevated white count, fever, 10 days into COVID-19 pneumonia cannot rule out bacterial superimposed infection. Procalcitonin, MRSA swab, urine Legionella, bacterial antigen negative. Blood culture preliminary negative. Sputum culture not taken yet. Remains clinically sick. For now continue vancomycin and cefepime as per creatinine clearance. Check echocardiogram. Plan to keep him net negative. Net 2 L negative since admission. Repeat dose of Lasix today. Daily weights, strict input output charting. Fluid restriction up to 1500 cc. Continue to monitor inflammatory markers daily including LDH, ferritin, ESR, CRP. Severely guarded prognosis. Full code. Full dose Lovenox will help with DVT prophylaxis as well. GI soft diet. Famotidine for daily prophylaxis. Attestations Medical Necessity Statement*: Requires continued hospitalization for management of ARDS secondary COVID-19 pneumonia. Critical Care Time: The high probability of a clinically significant, sudden or life threatening deterioration of the patient's respiratory system(s) required my full and direct attention, intervention and personal management. The critical care time is as shown. 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 [place] Diagnoses ARDS (adult respiratory distress syndrome) J80 COVID-19 U07.1
--- NOTE | 2020-11-26 10:11 | USCV_ITS ---
Pankaj Bernardo Age: 50 Gender: M : 1970 Exam Date: 11/26/2020 12:13 Ordering Phys: Mikael Brooks MD Technologist: Beatriz Marques Exam Location: [facility] [place] Indication: Shortness of breath, COVID + BP: 123 / 84 HR: 59 Rhythm: Sinus Technical Quality: Technically difficult study MEASUREMENTS (Male / Female) Normal Values 2D ECHO LV Diastolic Diameter PLAX 3.1 cm 4.2 - 5.9 / 3.9 - 5.3 cm LV Systolic Diameter PLAX 1.8 cm LV Chamber Size 3.5 cm IVS Diastolic Thickness 1.6 cm 0.6 - 1.0 / 0.6 - 0.9 cm IVS Systolic Thickness 2.1 cm LVPW Diastolic Thickness 1.2 cm 0.6 - 1.0 / 0.6 - 0.9 cm LVPW Systolic Thickness 2.2 cm RV Chamber Size 3.8 cm LVOT Diameter 2.1 cm LV Ejection Fraction 2D Teich 76.4 % LA Diameter 3.4 cm LA Width 2.2 cm LA Height 5.9 cm RA Width 2.8 cm RA Height 4.8 cm Aorta at Sinotubular Diameter 2.5 cm M-MODE LV Diastolic Diameter MM 4.0 cm 4.2 - 5.9 / 3.9 - 5.3 cm LV Systolic Diameter MM 2.2 cm LV Ejection Fraction MM Teich 77.0 % IVS Diastolic Thickness MM 1.4 cm 0.6 - 1.0 / 0.6 - 0.9 cm IVS Systolic Thickness MM 1.8 cm LVPW Diastolic Thickness MM 1.4 cm 0.6 - 1.0 / 0.6 - 0.9 cm LVPW Systolic Thickness MM 1.7 cm RV Diastolic Diameter MM 1.7 cm Aortic Annulus Diameter 3.3 cm LA Ao Ratio MM 1.3 MV E Point Septal Separation 0.3 cm DOPPLER AV Peak Velocity 165.0 cm/s LVOT Peak Velocity 163.0 cm/s AV Area Cont Eq vti 3.2 cm squared AV Area Cont Eq pk 3.3 cm squared MV Area PHT 4.2 cm squared Mitral E to A Ratio 0.9 MV E' Velocity 43.5 cm/s Mitral E to MV E' Ratio 10.3 Mitral E to LV E' Lateral Ratio 9.4 Mitral E to LV E' Septal Ratio 11.5 TV Peak E Velocity 54.0 cm/s Right Atrial Pressure 3.0 mmHg PV Peak Velocity 92.0 cm/s RV Acceleration Time 0.1 s RV Ejection Time 0.3 s RV AcT/ET 0.2 FINDINGS Left Ventricle Normal left ventricular size and systolic function, EF 75%. Mild left ventricular hypertrophy. No regional wall motion abnormalities. Grade I/IV diastolic dysfunction (abnormal relaxation filling pattern), normal to mildly elevated filling pressures. Right Ventricle The right ventricle is normal in size and function. Right Atrium The right atrium is normal in size. Left Atrium The left atrium is normal in size. Mitral Valve No gross abnormalities noted Aortic Valve No gross abnormalities noted Tricuspid Valve No gross abnormalities noted Pulmonic Valve No gross abnormalities noted Pericardium Normal pericardium without effusion. Aorta Normal ascending aorta dimension. CONCLUSIONS Mild left ventricular hypertrophy. No regional wall motion abnormalities. Grade I/IV diastolic dysfunction (abnormal relaxation filling pattern), normal to mildly elevated filling pressures. No significant valvular abnormalities. Normal cardiac chamber sizes. There is no pericardial effusion. There are no intracardiac masses. No previous study is available for comparison. Dr Delbert Naranjo MD [facility] (Electronically Signed) Final Date: 26 November 2020 19:17 S
[2020-11-26] MEDS: FUROsemide 10 mg/mL SDV 4mL 40 MG IVP (10:14)
[2020-11-26] MEDS: ascorbic acid 500 mg Tablet 1000 MG PO ×2 (10:14→17:22)
[2020-11-26 10:35] LABS: ABG PCO2 34.3 mmHg (35-45); ABG PH Result 7.43 (7.35-7.45); Alveolar-Arterial Oxygen Gradi 63.6 mmHg (5-10); Arterial Blood Gas Hematocrit 48.1 % (42-52); Base Excess ABG -1.2 mmol/L (-2.0-2.0); Blood Gas Allen Test Pos; Blood Gas Operator Identificat CAK; Blood Gas Sample Site Radial, left; Blood Gas Sample Type Arterial; Carboxyhemoglobin 0.5 %THgb (0.4-20.1); HCO3 ABG 22.5 mmol/L (22-26); Ionized Calcium Level - ABG 1.2 mmol/L (1.1-1.4); Methemoglobin 0.9 % (0.4-1.5); Oxygen Device HAG; Oxygen Saturation ABG 95.3; PO2 ABG 74.5 mmHg (80.0-100.0); Total Hemoglobin 15.7 g/dL (14-18)
[2020-11-26 10:36] LABS: Oxygen Device HAG
[2020-11-26 11:18] LABS: Vancomycin Trough 8.3 ug/mL (10-15)
[2020-11-26 12:24] LABS: Glucose Point of Care 153 mg/dL (70-110)
[2020-11-26] MEDS: nicotine 14 mg Patch 1 PATCH TRANSDERMA (14:27)
[2020-11-26 17:33] LABS: Glucose Point of Care 252 mg/dL (70-110)
[2020-11-26] MEDS: remdesivir 100 MG in sodium chloride 0.9% (100 ml) 100 ML IV (19:11)
--- NOTE | 2020-11-26 19:24 | PC.NURSE ---
SHift summary: Patient's oxygen requirements have been reduced. CUrrently on 30L and 50% Hi flow. Patient transfers from bed to chair well and recovers quickly. SPend about half of the day in bed. At the time of this note, patient has had an intake of 1000ml and output of 1450ml. Negative balance for day shift.
[2020-11-26 20:08] LABS: Glucose Point of Care 252 mg/dL (70-110)
[2020-11-27] VITALS (100 sets, daily range): BP systolic 112–146; BP diastolic 71–94; PULSE 52–95; RESP 16–20; TEMP 36.6–36.8; O2SAT 86–97
[2020-11-27] MEDS: ipratropium-albuterol 3 mL Neb INHALATION ×6 (00:31→21:15)
[2020-11-27] MEDS: vancomycin 1,250 MG/250 ML PIGGYBACK 200 MG IV ×3 (02:29→19:32)
[2020-11-27 03:59] LABS: ABG PH Result 7.41 (7.35-7.45); Alveolar-Arterial Oxygen Gradi 29.3 mmHg (5-10); Arterial Blood Gas Hematocrit 43.2 % (42-52); Base Excess ABG 0.7 mmol/L (-2.0-2.0); Blood Gas Allen Test Pos; Blood Gas Sample Site Radial, right; Blood Gas Sample Type Arterial; Carboxyhemoglobin 0.2 %THgb (0.4-20.1); HCO3 ABG 25.4 mmol/L (22-26); HGB O2 Sat 95.2 % (95-100); Ionized Calcium Level - ABG 1.1 mmol/L (1.1-1.4); Methemoglobin 0.5 % (0.4-1.5); PO2 ABG 81.8 mmHg (80.0-100.0); Potassium Level - ABG 3.9 mmol/L (3.5-5.0); Total Hemoglobin 14.1 g/dL (14-18)
[2020-11-27 04:16] LABS: Oxygen Device HHFNC
--- NOTE | 2020-11-27 05:53 | PC.NURSE ---
Shift Summary Patient had an uneventful night, he had no complaints of pain all evening. He remains on heated high flow at 30 liters and 50% FiO2. Bueno catheter drained 1050 mls of bright yellow urine all evening. Left hand and right AC IV sites are saline locked at this time. Patient is alert and oriented x4, no skin issues or wounds noted at this time. Intake this shift was 450 mls.
[2020-11-27 07:15] LABS: C Reactive Protein 67.4 mg/L (0.0-4.9); Creatine Phosphokinase 35 U/L (39-308); NT Pro B Type Natriuretic Pept 53 pg/mL (0-125)
[2020-11-27 07:37] LABS: Ferritin 1696 ng/mL (30-400)
[2020-11-27 07:38] LABS: Glucose Point of Care 144 mg/dL (70-110)
--- NOTE | 2020-11-27 07:46 | PC.NURSE ---
Report received, resting in bed. AAOx4. MAkes all needs known. HFNC at 30L/50%. No c/o SOB. Assisted pt up to chair in room for breakfast. Lung sounds coarse. PIV's flushed. Denies any needs. Will monitor.
[2020-11-27] MEDS: famotidine 20 mg/2 mL INJ IVP ×2 (08:03→20:04)
[2020-11-27] MEDS: benzonatate 100 mg Capsule PO (08:03)
[2020-11-27] MEDS: zinc gluconate 50 mg Tablet PO (08:03)
[2020-11-27] MEDS: ferrous gluconate 324 mg Tablet PO ×2 (08:03→16:54)
[2020-11-27] MEDS: ascorbic acid 500 mg Tablet 1000 MG PO ×2 (08:03→16:54)
[2020-11-27] MEDS: dexamethasone 4 mg/mL INJ 6 MG IVP (08:04)
[2020-11-27] MEDS: enoxaparin 100 mg/mL Syringe 94 MG SUBCUT ×2 (08:05→20:04)
[2020-11-27] MEDS: nicotine 14 mg Patch 1 PATCH TRANSDERMA (08:05)
[2020-11-27] MEDS: budesonide 0.5 mg/2 mL Neb INHALATION ×2 (09:06→21:15)
--- NOTE | 2020-11-27 09:54 | P.PN_ITS ---
Subjective Subjective: Interval history: No acute events overnight. Currently patient is on 30 L 50% oxygen supplementation saturating 91%. Patient did have an coughing bout early in the morning today during which he desaturated to 85% and took around 5 minutes to recover saturations over 90%. Denies any nausea, vomiting, headache. States feeling better. Working well with spirometry and Acapella. Vitals/I&O/Wt Last Vital Signs Temp 98.1 F 11/27/20 08:00 Pulse 79 11/27/20 09:30 Resp 16 11/27/20 09:16 BP 121/79 11/27/20 09:30 Pulse Ox 92 11/27/20 09:30 11/26/20 11/27/20 11/27/20 22:59 06:59 14:59 Intake Total 890 / 1650 750 / 2400 600 / 600 Output Total 400 / 1450 1050 / 2500 Balance 490 / 200 -300 / -100 600 / 600 Weight last 48 hrs Weight 92.986 kg Weight 93.984 kg Weight 96.615 kg Physical Exam Narrative: EXAM NARRATIVE: General: Sick appearing, less tired, AO x3, no ac michael distress at present HEENT: PERRLA, pupils bilaterally equal and reactive Chest: Bilateral bronchial breath sounds, diffuse rhonchi all over the lung loco, equal good air entry bilaterally CVS: S1-S2 regular, no murmurs, no tachycardia, no gallops, no rubs Abdomen: Soft, nontender, no organomegaly, bowel sounds present Neuro: No focal deficits, no facial deformity, AO x3, power 5/5 in all limbs Urinary Catheter Management^: Bueno: Cath Placed During This Visit: yes Reason for Continuing Indwelling Catheter: Accurate Measurement of Urinary Output in Critically Ill Patients Urinary Catheter Date of Insertion: 11/25/20 Urinary Catheter Time of Insertion: 20:05 Data : 11/26/20 05:29 11/26/20 05:29 Micro: Microbiology 11/26/20 12:00 Gram Stain - Final Sputum - Expectorated Sputum 11/25/20 16:28 Blood Culture - Preliminary Blood NEGATIVE TO DATE 11/25/20 16:25 Blood Culture - Preliminary Blood NEGATIVE TO DATE 11/25/20 16:06 MRSA Culture - Final Nose A&P Assessment and plan (1) ARDS (adult respiratory distress syndrome): Status: Acute (2) COVID-19: Status: Acute Additional A&P Information ARDS secondary to COVID-19 pneumonia: Improving. ABG improving. PF ratio today morning 160 from 90 yesterday Post 1 dose of Actemra on October 26. Remdesivir to finish 5-day course. Dexamethasone 10 mg IV stat followed by 6 mg daily. DuoNebs every 4 hour, budesonide twice daily. Tessalon Perles. Every 8 hourly, Robitussin Pulmonary toilet with incentive spirometry and flutter valve. Vitamin C, zinc. CTA negative for PE. For now continue with Lovenox 1 mg/kg body weight every 12 hourly. Most likely patient will need anticoagulation 14 days post discharge. Given elevated white count, fever, 10 days into COVID-19 pneumonia cannot rule out bacterial superimposed infection. Procalcitonin, MRSA swab, urine Legionella, bacterial antigen negative. Blood culture preliminary has remained negative, sputum culture mixed respiratory jade remains clinically sick. For now continue vancomycin and cefepime as per creatinine clearance. Will most likely finish a 5-day course. Echocardiogram result shows an EF 75 % with grade 1 diastolic dysfunction, no valvular abnormalities. Plan to keep him net negative. Net 1.3 L negative since admission. No Lasix dose today. Daily weights, strict input output charting. Fluid restriction up to 1500 cc. Continue to monitor inflammatory markers daily including LDH, ferritin, ESR, CRP. ESR improving 60>> 39, CRP improving from 120>> 67.4 Severely guarded prognosis. Full code. Full dose Lovenox will help with DVT prophylaxis as well. GI soft diet. Famotidine for daily prophylaxis. Attestations Medical Necessity Statement*: Requires further hospitalization for management of of ARDS secondary to COVID-19 pneumonia Time Spent in Patient Care: Greater than 35 minutes (>than 50% of time spent in counselling and/or direct pt care on unit) . 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
--- NOTE | 2020-11-27 10:21 | PC.NURSE ---
Pt had coughing spell, O2 increased to 46%/30L. PT educated on breathing techniques. MD at bedside. Will monitor.
[2020-11-27 14:04] LABS: Erythrocyte Sedimentation Rate 39 mm/hr (0-10)
[2020-11-27] MEDS: benzonatate 100 mg Capsule 200 MG PO ×2 (15:28→20:04)
[2020-11-27 16:27] LABS: Glucose Point of Care 215 mg/dL (70-110)
[2020-11-27 16:27] LABS: Glucose Point of Care 137 mg/dL (70-110)
[2020-11-27] MEDS: remdesivir 100 MG in sodium chloride 0.9% (100 ml) 100 ML IV (17:26)
--- NOTE | 2020-11-27 18:02 | PC.NURSE ---
1800 meds given early in order to cluster care and reduce exposure. 1802 Vanc trough drawn at this time, awaiting results before giving vanc. Pt resting in bed. 30L/40% fio2. Will transition to NC soon. Pt denies any needs, occasional coughing spells but is recovering well. Bueno cath draining freely to BSD. No other issues noted.
--- NOTE | 2020-11-27 18:11 | PC.NURSE ---
O2@7LNC per RT at this time.
[2020-11-27 18:51] LABS: Vancomycin Trough 9.9 ug/mL (10-15)
[2020-11-27 20:03] LABS: Glucose Point of Care 251 mg/dL (70-110)
[2020-11-28] VITALS (55 sets, daily range): BP systolic 111–158; BP diastolic 73–115; PULSE 46–114; RESP 16–20; TEMP 36.6–36.8; O2SAT 84–97
[2020-11-28] MEDS: insulin glargine 100 units/1 mL 10 UNIT SUBCUT ×2 (00:21→20:08)
[2020-11-28] MEDS: ipratropium-albuterol 3 mL Neb INHALATION ×7 (00:41→23:37)
[2020-11-28] MEDS: vancomycin 1,250 MG/250 ML PIGGYBACK 200 MG IV ×3 (03:27→19:54)
[2020-11-28 04:41] LABS: ABG PCO2 37.5 mmHg (35-45); ABG PH Result 7.43 (7.35-7.45); Arterial Blood Gas Hematocrit 42.6 % (42-52); Base Excess ABG 0.6 mmol/L (-2.0-2.0); Blood Gas Allen Test Pos; Blood Gas Sample Site Radial, right; Blood Gas Sample Type Arterial; Carboxyhemoglobin 0.4 %THgb (0.4-20.1); HCO3 ABG 24.8 mmol/L (22-26); HGB O2 Sat 96.7 % (95-100); Ionized Calcium Level - ABG 1.2 mmol/L (1.1-1.4); Oxygen Device NC; Oxygen Saturation ABG 98.1; Potassium Level - ABG 4.2 mmol/L (3.5-5.0); Total Hemoglobin 13.9 g/dL (14-18)
--- NOTE | 2020-11-28 06:00 | XRR_ITS ---
PROCEDURE INFORMATION: Exam: XR Chest Exam date and time: 11/28/2020 6:00 AM Age: 50 years old Clinical indication: Condition or disease; Other: Covid TECHNIQUE: Imaging protocol: XR of the chest. Views: 1 view. COMPARISON: CR (CHEST, ) 11/26/2020 5:32 AM FINDINGS: Lungs: Low lung volumes. Persistent bilateral airspace opacities. No large pleural effusion or pneumothorax. Pleural spaces: See Lungs finding. Heart/Mediastinum: Stable cardiomediastinal silhouette. Bones/joints: No acute osseous injury identified. XR/XR chest 1V portable [id number] IMPRESSION: Persistent bilateral airspace opacities.
--- NOTE | 2020-11-28 06:45 | PC.NURSE ---
Shift Summary Patient had an uneventful night, he is on 5L of oxygen NC. Right AC IV is saline locked and left hand IV has Cefepime infusing at 100 mls/hr. Patient is alert and oriented x4. Bueno catheter drained 1100 mls of dark yellow urine all evening. Intake this shift was 500 mls.
[2020-11-28 07:32] LABS: Basophils % 0.2 %; Eosinophils % 0.2 %; Hematocrit 41.6 % (42.0-52.0); Hemoglobin 13.6 g/dL (11.7-16.6); Lymphocytes # 1.8 10^3/uL (0.8-4.8); Lymphocytes % 11.1 %; Mean Corpuscular HGB Conc 32.7 g/dL (30.0-36.0); Mean Corpuscular Hemoglobin 29.4 pg (28.0-34.0); Mean Platelet Volume 10.4 fL (7.4-10.4); Monocytes # 1.6 10^3/uL (0.2-0.9); Monocytes % 9.9 %; Neutrophils # 12.64 10^3/uL (1.8-7.7); Neutrophils % 77.6 %; Nucleated Red Blood Cells % 0 %; Platelet Count 325 10^3/cmm (130-400); Red Blood Count 4.62 10^6/uL (4.1-5.3); Red Cell Distribution Width 13.6 % (12.1-15.1); White Blood Count 16.3 10^3/uL (4.0-10.0)
[2020-11-28 08:12] LABS: Alanine Aminotransferase 42 U/L (0-41); Albumin Level 2.6 g/dL (3.5-5.2); Alkaline Phosphatase 57 IU/L (40-130); Anion Gap 14.4 (5-19); Aspartate Amino Transferase 21 U/L (0-40); Blood Urea Nitrogen 22 mg/dL (6-20); Calcium 7.8 mg/dL (8.5-10.5); Carbon Dioxide 20 mmol/L (22-29); Chloride 104 mmol/L (98-107); Globulin 2.9 g/dL (1.3-4.6); Glucose 106 mg/dL (65-115); Osmolality Calculated 282 mOsm/kg (285-295); Potassium 4.4 mmol/L (3.5-5.1); Sodium 134 mmol/L (136-145); Total Bilirubin 0.4 mg/dL (0.15-1.2); Total Protein 5.5 g/dL (6.6-8.7)
[2020-11-28 08:24] LABS: D Dimer 0.32 ug/mIFEU (0-0.59)
[2020-11-28] MEDS: ferrous gluconate 324 mg Tablet PO ×2 (08:35→17:49)
[2020-11-28] MEDS: dexamethasone 4 mg/mL INJ 6 MG IVP (08:35)
[2020-11-28] MEDS: enoxaparin 100 mg/mL Syringe 94 MG SUBCUT ×2 (08:35→20:08)
[2020-11-28] MEDS: ascorbic acid 500 mg Tablet 1000 MG PO ×2 (08:35→17:49)
[2020-11-28] MEDS: famotidine 20 mg/2 mL INJ IVP ×2 (08:36→20:08)
[2020-11-28] MEDS: zinc gluconate 50 mg Tablet PO (08:36)
[2020-11-28] MEDS: nicotine 14 mg Patch 1 PATCH TRANSDERMA (08:36)
[2020-11-28] MEDS: benzonatate 100 mg Capsule 200 MG PO ×3 (08:40→20:08)
[2020-11-28] MEDS: budesonide 0.5 mg/2 mL Neb INHALATION ×2 (08:52→19:54)
[2020-11-28 09:28] LABS: Erythrocyte Sedimentation Rate 33 mm/hr (0-10)
[2020-11-28 09:47] LABS: C Reactive Protein 27.4 mg/L (0.0-4.9); Creatine Phosphokinase 37 U/L (39-308); NT Pro B Type Natriuretic Pept 36 pg/mL (0-125)
[2020-11-28 10:06] LABS: Ferritin 1494 ng/mL (30-400)
[2020-11-28 12:11] LABS: Glucose Point of Care 164 mg/dL (70-110)
[2020-11-28 16:55] LABS: Glucose Point of Care 225 mg/dL (70-110)
[2020-11-28] MEDS: remdesivir 100 MG in sodium chloride 0.9% (100 ml) 100 ML IV (17:49)
--- NOTE | 2020-11-28 18:49 | PC.NURSE ---
SHift summary: uneventful shift. patient was up to a chair for most of day. Oxygen reduced to 4-5 Liters NC. At the time of this note, pt is still on the fluid restriction of 1500 mL. has had an intake of 1160 during day shift. output of 1500. Day shift was 340mL negative.
--- NOTE | 2020-11-28 20:48 | PC.NURSE ---
Transfer to [facility] Patient was transported to [facility] by wheelchair on 4 liters NC and placed in room 250 bed 1. Hand off report given to Gayle, all patient belongings were transported with the patient and left at the bedside.
--- NOTE | 2020-11-28 22:21 | PM.PN ---
Subjective Subjective: Interval history: He is overall feeling better. Gets winded with exertion. Denies chest pain. No vomiting or diarrhea. Vitals/I&O/Wt Last Vital Signs Temp 98.2 F 11/28/20 21:14 Pulse 72 11/28/20 21:14 Resp 16 11/28/20 21:14 BP 138/88 11/28/20 21:14 Pulse Ox 95 11/28/20 21:14 11/28/20 11/28/20 11/28/20 06:59 14:59 22:59 Intake Total 750 / 2600 310 / 310 1300 / 1610 Output Total 1100 / 2350 200 / 200 1050 / 1250 Balance -350 / 250 110 / 110 250 / 360 Weight last 48 hrs Weight 92.334 kg Weight 92.193 kg Physical Exam Const: COMMON NORMALS: no acute distress, patient oriented x3 and alert GENERAL APPEARANCE: cooperative and comfortable ORIENTATION/CONSCIOUSNESS: Yes awake OTHER: Pleasant, conversant. Nasal cannula on, comfortable with this. Sitting up in chair. HENMT: COMMON NORMALS: oropharynx normal Neck/C-Spine: COMMON NORMALS: no JVD Resp: COMMON NORMALS: normal respiratory effort and clear to auscultation bilaterally AUSCULTATION: clear to auscultation bilaterally Cardio: COMMON NORMALS: no JVD, regular rhythm, S1 normal heart sound present, S2 normal heart sound present and No murmurs present (Cardio) RHYTHM: regular rhythm HEART SOUNDS: S1 normal heart sound present and S2 normal heart sound present GI: COMMON NORMALS: Normal to inspection, nondistended, normoactive bowel sounds present, Soft to palpation and non-tender PALPATION: Yes Soft to palpation Extremity: COMMON NORMALS: no joint enlargement and no pedal edema Neuro: COMMON NORMALS: patient oriented x3 and moves all extremities SENSORIUM/ORIENTATION: Yes alert Skin: COMMON NORMALS: no rashes or lesions noted GENERAL SKIN EXAM: no rashes or lesions noted Urinary Catheter Management^: Bueno: Cath Placed During This Visit: yes Reason for Continuing Indwelling Catheter: Accurate Measurement of Urinary Output in Critically Ill Patients Urinary Catheter Date of Insertion: 11/25/20 Urinary Catheter Time of Insertion: 20:05 Data : 11/28/20 07:02 11/28/20 07:02 Micro: Microbiology 11/26/20 12:00 Gram Stain - Final Sputum - Expectorated Sputum Sputum Culture - Final A&P Assessment and plan (1) ARDS (adult respiratory distress syndrome): Gradually showing improvement. Oxygen requirement appears to be gradually decreasing. Down to 5 L nasal cannula today. Continue to wean down as tolerating. Continue remdesivir, Decadron. DuoNeb. Budesonide. Lovenox prophylaxis. Supportive care. Persistent leukocytosis 16,000. Empirically covered also with antibiotics with cefepime and vancomycin. Continue for now. Currently on fluid restriction. Noted unremarkable TTE. No PE on CTA. Status: Acute (2) COVID-19: As above. Status post Actemra 11/25. Status: Acute Attestations Medical Necessity Statement*: Continue admission for assessment management of severe COVID-19 pneumonia, improving respiratory failure with hypoxia. Possible superimposed bacterial infection. Coding Level of Care Code Acute [employer] Maintenance [employer] Diagnoses ARDS (adult respiratory distress syndrome) J80 COVID-19 U07.1
[2020-11-29] VITALS (7 sets, daily range): BP systolic 122–160; BP diastolic 79–86; PULSE 61–75; RESP 16–20; TEMP 36.6–36.8; O2SAT 88–97
[2020-11-29] MEDS: vancomycin 1,250 MG/250 ML PIGGYBACK 200 MG IV ×2 (01:37→11:48)
[2020-11-29 02:14] LABS: Glucose Point of Care 184 mg/dL (70-110)
[2020-11-29] MEDS: ipratropium-albuterol 3 mL Neb INHALATION (04:05)
[2020-11-29 04:38] LABS: ABG PCO2 36.8 mmHg (35-45); ABG PH Result 7.43 (7.35-7.45); Alveolar-Arterial Oxygen Gradi 4.4 mmHg (5-10); Base Excess ABG 0.7 mmol/L (-2.0-2.0); Blood Gas Allen Test Pos; Blood Gas Operator Identificat JB; Blood Gas Sample Site Radial, right; Blood Gas Sample Type Arterial; Carboxyhemoglobin 0.6 %THgb (0.4-20.1); HCO3 ABG 24.6 mmol/L (22-26); HGB O2 Sat 93.5 % (95-100); Ionized Calcium Level - ABG 1.2 mmol/L (1.1-1.4); Methemoglobin 0.9 % (0.4-1.5); Oxygen Device NC; Oxygen Saturation ABG 94.9; PO2 ABG 70.4 mmHg (80.0-100.0); Potassium Level - ABG 4.4 mmol/L (3.5-5.0); Total Hemoglobin 14.7 g/dL (14-18)
[2020-11-29] MEDS: cefepime 1,000 MG in sodium chloride 0.9% (plus) 100 ML 100 MG IV (05:51)
[2020-11-29 06:41] LABS: Glucose Point of Care 152 mg/dL (70-110)
[2020-11-29 06:59] LABS: Basophils % 0.2 %; Eosinophils # 0.1 10^3/uL (0.0-0.8); Eosinophils % 0.4 %; Hematocrit 41.6 % (42.0-52.0); Hemoglobin 13.7 g/dL (11.7-16.6); Lymphocytes % 12.9 %; Mean Corpuscular HGB Conc 32.9 g/dL (30.0-36.0); Mean Corpuscular Hemoglobin 29.3 pg (28.0-34.0); Mean Corpuscular Volume 89.1 fL (80-94); Mean Platelet Volume 10.1 fL (7.4-10.4); Monocytes # 1.7 10^3/uL (0.2-0.9); Monocytes % 11.2 %; Neutrophils # 11.44 10^3/uL (1.8-7.7); Neutrophils % 73.9 %; Nucleated Red Blood Cells % 0 %; Platelet Count 334 10^3/cmm (130-400); Red Blood Count 4.67 10^6/uL (4.1-5.3); Red Cell Distribution Width 13.3 % (12.1-15.1); White Blood Count 15.5 10^3/uL (4.0-10.0)
[2020-11-29 07:11] LABS: D Dimer 0.33 ug/mIFEU (0-0.59)
[2020-11-29 07:22] LABS: Alanine Aminotransferase 79 U/L (0-41); Albumin Level 2.9 g/dL (3.5-5.2); Alkaline Phosphatase 63 IU/L (40-130); Aspartate Amino Transferase 38 U/L (0-40); Blood Urea Nitrogen 22 mg/dL (6-20); C Reactive Protein 14.6 mg/L (0.0-4.9); Carbon Dioxide 24 mmol/L (22-29); Chloride 102 mmol/L (98-107); Globulin 2.7 g/dL (1.3-4.6); Glucose 106 mg/dL (65-115); Osmolality Calculated 284 mOsm/kg (285-295); Sodium 135 mmol/L (136-145); Total Bilirubin 0.4 mg/dL (0.15-1.2); Total Protein 5.6 g/dL (6.6-8.7)
[2020-11-29 07:29] LABS: Anion Gap 13.8 (5-19); Potassium 4.8 mmol/L (3.5-5.1)
[2020-11-29] MEDS: dexamethasone 4 mg/mL INJ 6 MG IVP (08:23)
[2020-11-29] MEDS: benzonatate 100 mg Capsule 200 MG PO (08:24)
[2020-11-29] MEDS: ferrous gluconate 324 mg Tablet PO (08:24)
[2020-11-29] MEDS: ascorbic acid 500 mg Tablet 1000 MG PO (08:24)
[2020-11-29] MEDS: zinc gluconate 50 mg Tablet PO (08:24)
[2020-11-29] MEDS: famotidine 20 mg/2 mL INJ IVP (08:24)
[2020-11-29] MEDS: enoxaparin 100 mg/mL Syringe 94 MG SUBCUT (08:25)
[2020-11-29] MEDS: nicotine 14 mg Patch 1 PATCH TRANSDERMA (08:25)
[2020-11-29 11:48] LABS: Glucose Point of Care 114 mg/dL (70-110)
--- NOTE | 2020-11-29 12:17 | P.DS_ITS ---
Discharge Providers Date of Admission: 11/25/20 16:00 Date of Discharge: November 29, 2020 Attending Provider at Admission: Mikael Brooks MD Attending Provider at Discharge: Bird Brooks Diagnoses at Discharge Discharge Diagnosis (1) ARDS (adult respiratory distress syndrome): Status: Acute (2) COVID-19: Status: Acute Reason for Visit Reason for Visit: COVID +/ DIFFICULTY BREATHING Hospital Course Hospital Course Pleasant 50-year-old gentleman with history of diabetes (A1c noted 6.5% during the hospitalization, not on any treatment) was admitted and treated for acute hypoxic respiratory failure, severe COVID-19 pneumonia, initially assessed on 11/24, at which time required 4 L of oxygen by nasal cannula, showed some improvement after steroid dose, requested to return home, was discharged with course of dexamethasone, azithromycin, returned on 11/25 the following day with worsening dyspnea, with worsening respiratory failure, requiring 15 L nonrebreather to saturate 90%. CT angiogram of the chest was was not suggestive of PE, groundglass opacities secondary to COVID-19 noted. Incidentally perhaps some mild pulmonary hypertension features. He was admitted for treatment with remdesivir, Decadron, oxygen support, with leukocytosis, empirically also treated for possible bacterial superinfection with cefepime, vancomycin. Received Actemra on 11/25. He required up to 30 L high flow cannula oxygen support, but gradually improved, weaned down currently to 3.5 L nasal cannula. He feels overall much better. He denies any headache, nausea vomiting or diarrhea. No chest pain or pressure. His appetite has been coming back. He feels quite significantly better and he is wanting to return home today. He already has oxygen at home, delivery rate will be adjusted based on home oxygen assessment prior to discharge. His symptoms started originally on 11/14. He may discontinue isolation at onset or additional 2 days of isolation if remains asymptomatic. He is wanting to see vaccination after he recovers from the acute COVID-19 illness. Physical Exam Const: COMMON NORMALS: no acute distress, patient oriented x3 and alert G ENERAL APPEARANCE: cooperative and comfortable ORIENTATION/CONSCIOUSNESS: Yes awake OTHER: Pleasant, conversant. In good spirits. Nasal cannula on, comfortable with this. Sitting up in bed. HENMT: COMMON NORMALS: oropharynx normal Neck/C-Spine: COMMON NORMALS: no JVD Resp: COMMON NORMALS: normal respiratory effort and clear to auscultation bilaterally EFFORT & INSPECTION: Yes able to speak in complete sentences AUSCULTATION: clear to auscultation bilaterally Cardio: COMMON NORMALS: no JVD, regular rhythm, S1 normal heart sound present, S2 normal heart sound present and No murmurs present (Cardio) RHYTHM: regular rhythm HEART SOUNDS: S1 normal heart sound present and S2 normal heart sound present GI: COMMON NORMALS: Normal to inspection, nondistended, normoactive bowel sounds present, Soft to palpation and non-tender PALPATION: Yes Soft to palpation Extremity: COMMON NORMALS: no joint enlargement and no pedal edema Neuro: COMMON NORMALS: patient oriented x3 and moves all extremities SENSORIUM/ORIENTATION: Yes alert Skin: COMMON NORMALS: no rashes or lesions noted GENERAL SKIN EXAM: no rashes or lesions noted Urinary Catheter Management^: Bueno: Cath Placed During This Visit: yes Reason for Continuing Indwelling Catheter: Other Urinary Catheter Date of Insertion: 11/25/20 Urinary Catheter Time of Insertion: 20:05 Discharge Data Data Completed and Pending: Completed Studies During Hospitalization Category Date Time Status CT angio chest PE protcl [id number] Stat Cat Scan 11/25/20 11:42 Completed XR chest 1V marilu ble 15071 Q48H Exams 11/26/20 06:00 Completed XR chest 1V marilu ble 75160 Q48H Exams 11/28/20 06:00 Completed XR chest 1V marilu ble [id number] Stat Exams 11/25/20 11:39 Completed CV. echo complete * [id number] Routine Ultrasound 11/26/20 10:11 Completed Pending at discharge Category Date Time Status XR chest 1V marilu ble 14902 Q48H Exams 11/30/20 06:00 Ordered Blood Culture Sta t Lab 11/25/20 16:28 Results Complete Blood Co unt w/Auto AM LABS Lab 11/30/20 04:00 Ordered Complete Blood Co unt w/Auto AM LABS Lab 12/01/20 04:00 Ordered Comprehensive Met abolic Panel AM LA BS Lab 11/30/20 04:00 Ordered Comprehensive Met abolic Panel AM LA BS Lab 12/01/20 04:00 Ordered Labs from last 24 hours 11/29/20 11/29/20 11/29/20 10:53 06:43 06:43 WBC RBC Hgb Hct MCV MCH MCHC RDW Plt Count MPV Neut % (Auto) Lymph % (Auto) [place] % (Auto) Eos % (Auto) Baso % (Auto) Neut # (Auto) Lymph # (Auto) [place] # (Auto) Eos # (Auto) Baso # (Auto) Nucleated RBC % (a uto) Nucleated RBCs # D-Dimer 0.33 Specimen Type Sample Site ABG pH ABG pCO2 ABG pO2 ABG HCO3 ABG O2 Saturation ABG Base Excess Favian Test A-a O2 Gradient Hematocrit Hgb O2 Saturation Carboxyhemoglobin Methemoglobin Total Hemoglobin Sodium 135 L Potassium 4.8 Glucose 106 Ionized Calcium O2 Delivery Device O2 Liters/Min Buffing [employer] Polishing Wheel Repairer ID Chloride 102 Carbon Dioxide 24 Anion Gap 13.8 BUN 22 H Creatinine 0.6 L GFR Calculation 142.0 H POC Glucose 114 H Calculated Osmolal ity 284 L Calcium 8.0 L Total Bilirubin 0.4 AST 38 ALT 79 H Alkaline Phosphata se 63 C-Reactive Protein 14.6 H Total Protein 5.6 L Albumin 2.9 L Globulin 2.7 11/29/20 11/29/20 11/29/20 06:43 06:23 04:24 WBC 15.5 H RBC 4.67 Hgb 13.7 Hct 41.6 L MCV 89.1 MCH 29.3 MCHC 32.9 RDW 13.3 Plt Count 334 MPV 10.1 Neut % (Auto) 73.9 Lymph % (Auto) 12.9 [place] % (Auto) 11.2 Eos % (Auto) 0.4 Baso % (Auto) 0.2 Neut # (Auto) 11.44 H Lymph # (Auto) 2.0 [place] # (Auto) 1.7 H Eos # (Auto) 0.1 Baso # (Auto) 0.0 Nucleated RBC % (a uto) 0 Nucleated RBCs # 0.0 D-Dimer Specimen Type Arterial Sample Site Radial, right ABG pH 7.43 ABG pCO2 36.8 ABG pO2 70.4 L ABG HCO3 24.6 ABG O2 Saturation 94.9 ABG Base Excess 0.7 Favian Test Pos A-a O2 Gradient 4.4 L Hematocrit 45.0 Hgb O2 Saturation 93.5 L Carboxyhemoglobin 0.6 Methemoglobin 0.9 Total Hemoglobin 14.7 Sodium 134.0 Potassium 4.4 Glucose 107.0 Ionized Calcium 1.2 O2 Delivery Device Nc O2 Liters/Min 4.0 Buffing And Polishing Wheel Repairer ID Man Chloride Carbon Dioxide Anion Gap BUN Creatinine GFR Calculation POC Glucose 152 H Calculated Osmolal ity Calcium Total Bilirubin AST ALT Alkaline Phosphata se C-Reactive Protein Total Protein Albumin Globulin 11/28/20 11/28/20 20:00 16:43 WBC RBC Hgb Hct MCV MCH MCHC RDW Plt Count MPV Neut % (Auto) Lymph % (Auto) [place] % (Auto) Eos % (Auto) Baso % (Auto) Neut # (Auto) Lymph # (Auto) [place] # (Auto) Eos # (Auto) Baso # (Auto) Nucleated RBC % (a uto) Nucleated RBCs # D-Dimer Specimen Type Sample Site ABG pH ABG pCO2 ABG pO2 ABG HCO3 ABG O2 Saturation ABG Base Excess Favian Test A-a O2 Gradient Hematocrit Hgb O2 Saturation Carboxyhemoglobin Methemoglobin Total Hemoglobin Sodium Potassium Glucose Ionized Calcium O2 Delivery Device O2 Liters/Min Buff[employer] Polishing Wheel Repairer ID Chloride Carbon Dioxide Anion Gap BUN Creatinine GFR Calculation POC Glucose 184 H 225 H Calculated Osmolal ity Calcium Total Bilirubin AST ALT Alkaline Phosphata se C-Reactive Protein Total Protein Albumin Globulin Vitals: Last Vital Signs Temp 97.9 F 11/29/20 11:20 Pulse 75 11/29/20 11:20 Resp 18 11/29/20 11:20 BP 122/79 11/29/20 11:20 Pulse Ox 93 11/29/20 11:20 Discharge Plan Discharge Patient Disposition: Home Condition: Stable Prescriptions: New cefdinir 300 mg capsule 300 mg PO BID 2 Days Qty: 4 RF: 0 dexamethasone [Decadron] 6 mg tablet 6 mg PO DAILY Qty: 1 RF: 0 albuterol sulfate 90 mcg/actuation HFA aerosol inhaler 2 inh inhalation Q6H PRN (Reason: shortness of breath or wheezing) Qty: 6.7 RF: 0 No Action No Known Home Medications RF: 0 Discharge Orders: Discharge Order (Routine); Ordered 11/29/20 Ordered By: Bird Brooks Referrals: KRISHAN Dee FNP [Nurse Practitioner] - 12/06/20 10:00 am Discharge Activity: Oxygen as instructed Patient Instructions: Dexamethasone (By mouth), Cefdinir (By mouth), Viral Pneumonia (GEN) Activity Restrictions/Additional Instructions: Please continue to monitor oxygenation at home. Target saturation is above 90- 92%. You may need to increase your flow in case oxygen saturation is decreasing below 90%. Oxygen requirement may temporarily increase with activity. Your saturation should improve with rest, or increasing of oxygen flow. If it does not, saturations remain persistently below 88%, please seek medical attention. Similarly seek medical attention in case of any concerning symptoms including chest pain, severe shortness of breath, severe fatigue, painting, as discussed any stroke symptoms, or any other concerning symptoms. Please maintain isolation for additional 2 days, subsequently if you have no fever, no other symptoms including headache, muscle aches, nausea vomiting diarrhea, improving cough, you may discontinue isolation. Consider obtaining vaccination after you recover from the condition to help reduce chances of reinfection. Discharge Attestations Time Spent in Discharge Care*: greater than 30 min Quality Metrics Clinical Quality Measures During this hospital stay, did patient experience: None Coding Level of Care Code Acute Chg FW [place] note Diagnoses ARDS (adult respiratory distress syndrome) J80 COVID-19 U07.1
== END 2020-11-29 13:00 | disposition home or self-care (01) | DRG 177 ==
LOC: ER 12:37 → ICU 17:34 → MEDSURG 11-28 20:37
PROVIDERS: Admitting Provider Student in an Organized Health Care Education/Training Program; Emergency Provider Family Medicine; Visit Provider Internal Medicine
DX: U07.1 COVID-19 (principal); J12.82 Pneumonia due to coronavirus disease 2019; J80 Acute respiratory distress syndrome; J15.9 Unspecified bacterial pneumonia; Z87.891 Personal history of nicotine dependence; E11.9 Type 2 diabetes mellitus without complications; I27.20 Pulmonary hypertension, unspecified
CPT/HCPCS: 36415; 36416; 36600; 51702; 71045; 71275; 80051; 80053; 80061; 80202; 81003; 82330; 82436; 82550; 82728; 82805; 82962; 83036; 83540; 83550; 83605; 83735; 83880; 84100; 84133; 84145; 84300; 84443; 85025; 85378; 85651; 86140; 86403; 87040; 87070; 87205; 87449; 87641; 93306; 94640; 94660; 96365; 96367; 96372; 99285; J0692; J1100; J1650; J1815 ×2; J1940; J3262; J3370; J3490; J7611; J7626; Q9967